=== PATIENT | male | born 1970 | race Caucasian/White ===

== ENCOUNTER 2024-07-03 05:26 | Emergency (ER) | payer OTHER, SELFPAY ==
[2024-07-03 05:29] VITALS: BP 144/92
[2024-07-03 05:42] VITALS: BP 143/79
[2024-07-03 05:45] VITALS: BMI 31.0
[2024-07-03 06:00] VITALS: BP 131/73
--- NOTE | 2024-07-03 06:29 | ED.GENMED ---
History of Present Illness
<Adriana Shaikh MD, Resident - Last Filed: 07/03/24 10:13>
General
Chief Complaint: Musculo-Skeletal Complaint
Source: patient
Time Seen by Provider: 07/03/24 06:10
Nursing documentation reviewed up to this point in time: agreed with
History of Present Illness
History of Present Illness:
53yo M with H tobacco use, LEON presented from home to ED for left sided rib/flank pain. Two days ago, he slipped on ice and landed on left side/ribs. Yesterday he was unloading his car, and the pain got worse overnight. The pain is a 4-5/10 on
pain scale at rest, but goes up to a 9/10 with coughing. Otherwise he is in usual state of health-- he has a chronic nonproductive cough which is unchanged from baseline. He tried taking ibuprofen this morning with no relief.
Past History
<Adriana Shaikh MD, Resident - Last Filed: 07/03/24 10:13>
Past History
ED Past Medical History: GERD, HTN, Hypercholesterolemia, Other (h/o elevated liver enzymes) and Other (h/o alc use disorder, upper GI bleed, fractured wrist, and anxiety, depression)
ED Past Surgical History: Appendectomy and Other ([place] teeth extraction)
Patient has exhibited threatening behavior?: No
Social History
Tobacco: Smoker
Alcohol: Former (As of 2024 none for 10 years)
Drug: None
Personal: Partner
Living: with family (lives with fiance)
Employment: Not employed
Family History
Family History: CAD
Review of Systems
<Adriana Shaikh MD, Resident - Last Filed: 07/03/24 10:13>
Review of Systems
Constitutional: Reports no symptoms; Denies fever or chills
EENT: Reports no symptoms
Respiratory: Reports cough (chronic nonproductive cough, unchanged from baseline) and trouble breathing (limited to pain); Denies hemoptysis
Cardiac: Reports no symptoms; Denies chest pain, palpitations or syncope
ABD/GI: Reports no symptoms; Denies abdominal pain, nausea, vomiting, diarrhea, constipated, bloody stools or black stools
: Reports no symptoms; Denies dysuria, incontinence or bleeding
Musculoskeletal: Reports other (see hpi)
Skin: Reports no symptoms
Neurological: Reports no symptoms; Denies dizzy or weakness
Endocrine: Reports no symptoms
Hematologic/Lymphatic: Reports no symptoms
Psychiatric: Reports no symptoms
Phy Exam
<Adriana Shaikh MD, Resident - Last Filed: 07/03/24 10:13>
Physical Exam
Physical Exam:
tender to palpation left lower ribs laterally and posteriorly, no hematoma/ecchymosis/laceration
General Physical Exam
General Presentation: well appearing and no apparent distress
General age: appears stated age
General Skin: warm and dry
General Habitus: obese
General Mental: alert
General Hydration: appears well hydrated
Cardiovascular Exam
Cardiovascular Exam: regular rate/rhythm, no edema, no JVD and no murmur
Pulmonary Exam
Pulmonary Exam: lungs clear, no respiratory distress, no rales, no crackles, no rhonchi and no wheezing
Cough: non productive cough
Respirations: other (nonlabored breathing)
Gastrointestinal Exam
Gastrointestinal Exam: normal bowel sounds, non tender, soft and non distended
Neurological Exam
Neurological Exam: alert, oriented x3, no motor deficits and speech normal
Musculoskeletal Exam
Musculoskeletal Exam: no edema and back tenderness (see hpi)
Psychiatric Exam
Psychiatric Exam: normal mood/affect
Course
<Adriana Shaikh MD, Resident - Last Filed: 07/03/24 10:13>
Orders/Labs/Results
Orders:
Orders
07/03/24 06:39
Ketorolac [Toradol] 15 mg IM NOW STA
CR Ribs-left 3 Vw W/pa Chest Routine
Comment:
Reason For Exam: rib trauma/pain
07/03/24 06:56
Incentive Spirometry [Rx Incentive Spirometry] [RESP] Routine
Frequency: q1h while awake
07/03/24 08:00
Lidocaine [Lidocaine 4% Patch] 1 patch TOPICAL DAILY
Apply Lidocaine patch(s) to:: left rib pain
Vital Signs
Initial and Last Documented VS:
Initial Vital Signs
Temp Pulse Resp BP Pulse Ox
94.6 F L 78 20 144/92 97
07/03/24 05:29 07/03/24 05:29 07/03/24 05:29 07/03/24 05:29 07/03/24 05:29
Last Documented Vital Signs
Temp Pulse Resp BP Pulse Ox
97.9 F 78 20 131/73 97
07/03/24 07:11 07/03/24 05:29 07/03/24 05:29 07/03/24 06:00 07/03/24 05:58
<Mariela Sabillon DO - Last Filed: 07/03/24 07:18>
Orders/Labs/Results
Orders:
Orders
07/03/24 06:39
Ketorolac [Toradol] 15 mg IM NOW STA
CR Ribs-left 3 Vw W/pa Chest Routine
Comment:
Reason For Exam: rib trauma/pain
07/03/24 06:56
Incentive Spirometry [Rx Incentive Spirometry] [RESP] Routine
Frequency: q1h while awake
07/03/24 08:00
Lidocaine [Lidocaine 4% Patch] 1 patch TOPICAL DAILY
Apply Lidocaine patch(s) to:: left rib pain
Vital Signs
Initial and Last Documented VS:
Initial Vital Signs
Temp Pulse Resp BP Pulse Ox
94.6 F L 78 20 144/92 97
07/03/24 05:29 07/03/24 05:29 07/03/24 05:29 07/03/24 05:29 07/03/24 05:29
Last Documented Vital Signs
Temp Pulse Resp BP Pulse Ox
97.9 F 78 20 131/73 97
07/03/24 07:11 07/03/24 05:29 07/03/24 05:29 07/03/24 06:00 07/03/24 05:58
<Adriana Shaikh MD, Resident - Last Filed: 07/03/24 10:13>
MDM/Problems Addressed
Differential Diagnosis Includes:
s/p mechanical fall and blunt injury to left ribs
left rib fracture vs muscle strain/spasm
MDM/Problems Addressed:
Pain is most likely musculoskeletal in nature from recent fall
Will give torodol and lidocaine patch for pain control
Do not suspect any pneumothorax/hemothorax at this time given lung CTAB and no respiratory distress-- will check xrays to rule out pulmonary process
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
Incentive spirometer to prevent atelectasis
Recommend supportive measures at home including tylenol, ibuprofen, heating pad or ice for relief
Anticipate discharge home pending xray results
Discussed above with patient and his partner at bedside-- they are understanding and agreeable with plan
<Adriana Shaikh MD, Resident - Last Filed: 07/03/24 10:13>
*Critical Care Note
Total Time (30-74mins, 75-104mins- exclusive of procedures): Not Applicable
<Adriana Shaikh MD, Resident - Last Filed: 07/03/24 10:13>
Update Note
Update Note:
0800: Returned to bedside to reassess patient-- feeling better after toradol IM and lidocaine patch. Xrays reviewed by myself and Dr. Sabillon-- no acute pulmonary concerns or obvious rib fractures. Stable for discharge home with supportive measures,
reviewed with patient. Reviewed use of incentive spirometer. Send rx for lidocaine patch and to pharmacy. Xray radiology report still pending-- will call patient with results if any concerning findings present. Reviewed with patient and partner at
bedside-- they are understanding and agreeable with plan. Return precautions reviewed. Follow up with PCP as needed and for elevated BPs in ED.
1015: Radiology report benign-- no rib fracture, pleural effusion, pneumothorax, acute cardiopulm process.
ED Attending Note
<Adriana Shaikh MD, Resident - Last Filed: 07/03/24 10:13>
-
Portions of this chart may have been created with voice recognition software.� Occasional wrong word or��sound alike� substitutions may have occurred due to the inherent limitations of voice recognition software.
<Mariela Sabillon DO - Last Filed: 07/03/24 07:18>
ED Attending Note
Patient seen and examined by attending physician: Yes
I performed the substantive portion of visit, reviewed & personally made and approve the management plan that is documented in note by myself or HASMUKH.: Yes
I performed a history and physical exam of patient and discussed management with resident, I reviewed resident's note and agree with documented findings and plan of care.: Yes
ED Attending Note:
53-year-old male with history of tobacco abuse and hypertension presenting to the emergency department after a fall. Patient reports 2 days ago he fell on ice and landed directly on his ribs on the left side with subsequent pain. Denies head
injury or loss of consciousness. Since then has had pain with deep inspiration and with cough. Notes a chronic cough from his tobacco abuse. Denies chest pain. Tried Advil this morning without significant relief. Denies fever. Denies abdominal
pain or GI symptoms.
Vital signs are significant for low temperature, however on recheck at normal. On examination patient is in no acute respiratory distress. Generalized tenderness to the left mid axillary rib region, no ecchymosis, no crepitus. No splinting.
Lungs clear to auscultation. Ultimately suspect rib contusion versus rib fracture. Plan for x-ray imaging. No tenderness to abdomen without concern for intra-abdominal injury. Toradol and lidocaine patch administered for pain. Will also provide
incentive spirometry. Plan for discharge home with supportive care.
Discharge Plan
Departure
Patient Disposition: Home (Routine Discharge)
Date of Disposition: 07/03/24
Time of Disposition: 08:07
Patient with high blood pressure during this ER visit?: Yes
Condition: Good
Discharge Problem:
Contusion of rib on left side
Instructions: Rib injury in adults, How to use an incentive spirometer, BLOOD PRESSURE
Prescriptions:
New
lidocaine 4 % adhesive patch,medicated
1 patch topical BID PRN (Reason: Pain) Qty: 10 0RF
ibuprofen 600 mg tablet
600 mg PO Q8H PRN (Reason: Pain) Qty: 20 0RF
No Action
varenicline tartrate 0.5 MG tablet
0.5 mg PO DAILY
celecoxib 200 MG capsule
200 mg PO BID Qty: 20 0RF
hydrocodone-acetaminophen 1 TABLET tablet
1 - 2 tab PO Q6HPRN PRN (Reason: for severe pain) Qty: 20 0RF
amoxicillin-pot clavulanate 1 TABLET tablet
1 tab PO Q12 Qty: 10 0RF
Referrals:
Chino Ling MD [Family Provider] -
Activity Restrictions/Additional Instructions:
You were seen in the emergency department for rib pain
You were found to have a normal x-ray of your chest. Please continue to take pain medication as needed.
Please follow-up closely with your primary care physician.
Return to the emergency department for any worsening of your symptoms, or any development of chest pain, difficulty breathing, abdominal pain with persistent vomiting and inability to tolerate food or liquid by mouth (concern for dehydration),
weakness, headache or confusion, fever greater than 100.4, or any additional symptoms that are concerning to you.
Thank you for choosing [facility].
Interventions
Interventions:
*Risk Screen - Suicide Last Done: 07/03/24 05:44
*General Assessment Last Done: 07/03/24 05:46
*Neglect/Abuse Screening Last Done: 07/03/24 05:46
ED- Fall Risk Assessment Last Done: 07/03/24 06:07
*ED COVID-19 Vaccine History Last Done: 07/03/24 05:32
*Nursing Disposition Last Done: 07/03/24 08:20
ED-Musculoskeletal Assessment Last Done: 07/03/24 05:58
Discharge Date and Time
Discharge Date/Time: 07/03/24 08:20
Print Language: [id number]
[2024-07-03] MEDS: TORADOL 15 MG IM (06:46)
[2024-07-03] MEDS: LIDOCAINE 4% PATCH 1 PATCH TOPICAL (06:46)
== END 2024-07-03 08:20 | disposition home or self-care (01) ==
LOC: EMR 05:26
PROVIDERS: EMERGENCY PHYSICIAN Student in an Organized Health Care Education/Training Program; FAMILY PHYSICIAN Family Medicine
DX: S20.212A Contusion of left front wall of thorax, initial encounter (principal); W00.0XXA Fall on same level due to ice and snow, initial encounter; I10 Essential (primary) hypertension; E78.00 Pure hypercholesterolemia, unspecified; F17.200 Nicotine dependence, unspecified, uncomplicated
CPT/HCPCS: 99284; 96372; 71101

== ENCOUNTER → 2025-02-24 11:24 | Outpatient (REF) | payer OTHER, SELFPAY | LOC: UCDH 11:24 | PROVIDERS: ATTENDING PHYSICIAN Physician Assistant; FAMILY PHYSICIAN Family Medicine | DX: S99.912A Unspecified injury of left ankle, initial encounter (principal) | CPT/HCPCS: 73610 ==